=== PATIENT | female | born 2000 | race Caucasian/White ===

== ENCOUNTER 2024-05-17 15:52 | Emergency (ER) | payer OTHER, SELFPAY ==
[2024-05-17 15:53] VITALS: BP 177/75
--- NOTE | 2024-05-17 17:22 | ED.GENMED ---
History of Present Illness
General
Chief Complaint: Vaginal Bleeding
Source: patient and significant other
Exam Limitations: none
Time Seen by Provider: 05/17/24 17:04
Nursing documentation reviewed up to this point in time: agreed with
History of Present Illness
History of Present Illness:
25-year-old female presents emergency room complaining of vaginal bleeding since 05/06/2024. It began to light, then got heavy and has lightened again. She went to urgent care, was given a prescription for UTI, and sent to the emergency
department. She had negative STD and test 10 days ago. She has some nausea and cramping. No vomiting or diarrhea.
Past History
Past History
ED Past Medical History: Other (Factor V Leiden)
ED Past Surgical History: Orthopedic (Left ulna hardware) and Other (Right femoral clot removal)
Social History
Tobacco: Non-smoker
Alcohol: None
Drug: None
Personal: Partner
Living: with family
Review of Systems
Review of Systems
Allergies reviewed?: Yes
All Other Systems: Not applicable
Constitutional: Reports no symptoms
EENT: Reports no symptoms
Respiratory: Reports no symptoms
Cardiac: Reports no symptoms
ABD/GI: Reports no symptoms
: Reports bleeding
Musculoskeletal: Reports no symptoms
Skin: Reports no symptoms
Neurological: Reports no symptoms
Endocrine: Reports no symptoms
Hematologic/Lymphatic: Reports bleeding
Psychiatric: Reports no symptoms
Phy Exam
Physical Exam
Physical Exam:
Physical Exam
General: no apparent distress, not acutely ill
Neck: supple. no meningeal signs. normal posterior pharynx
Heart: s1/s2 regular rate and rhythm, no murmur. equal radial
pulses.
HEENT: Pupils equal round reactive to light, EOMI
Lungs: no acute respiratory distress. clear bilaterally
Abdomen: normal bowel sounds. not tender. no CVAT
Neuro: alert and oriented. no focal neurological deficits
Skin: no rash
Psychiatric: well kept. interactive and cooperative
Extremities: no edema. no calf tenderness. negative homans. good distal pulses
Genitourinary Exam Female
Exam Female: no adnexal tenderness and vaginal bleeding
Vaginal Exam: blood
Vaginal Bleeding: clots
Visual exam of cervix: os closed
Uterus: normal size
Adnexa: Bilateral: Normal
Course
Orders/Labs/Results
Orders:
Orders
05/17/24 17:13
IV Insert/Care/Rem.- Treatment PRN
US Pelvis W Transvag Combined Urgent
Comment:
Reason For Exam: vaginal bleeding2 wks
05/17/24 17:15
Test Result ONCE
05/17/24 17:43
Basic Metabolic Panel Urgent
Complete Blood Count/With Diff Urgent
Abnormal Lab Results
05/17/24
17:43
MCH 32.8 H pg
(27.0-31.0)
MPV 10.6 H fL
(7.4-10.4)
05/17/24 17:43
05/17/24 17:43
Vital Signs
Initial and Last Documented VS:
Initial Vital Signs
Temp Pulse Resp BP Pulse Ox
98.4 F 67 16 177/75 100
05/17/24 15:53 05/17/24 15:53 05/17/24 15:53 05/17/24 15:53 05/17/24 15:53
Last Documented Vital Signs
Temp Pulse Resp BP Pulse Ox
98.4 F 67 18 177/75 100
05/17/24 15:53 05/17/24 15:53 05/17/24 18:15 05/17/24 15:53 05/17/24 15:53
MDM/Problems Addressed
Differential Diagnosis Includes:
Dysmenorrhea, ectopic
MDM/Problems Addressed:
24-year-old female with dysmenorrhea. HCG neg as outpatient.
*Radiology
Radiology exam reviewed: radiology read reviewed (US pelvis no acute findings)
*Pulse Oximetry
Patient hypoxic: no
*Critical Care Note
Total Time (30-74mins, 75-104mins- exclusive of procedures): Not Applicable
Patient Management
Social determinants of health affecting care: Living situation and Strong social support
Escalation/DeEscalation of care consider admission/obs:
admit not indicated
ED Attending Note
-
Portions of this chart may have been created with voice recognition software.� Occasional wrong word or��sound alike� substitutions may have occurred due to the inherent limitations of voice recognition software.
Discharge Plan
Departure
Patient Disposition: Home (Routine Discharge)
Date of Disposition: 05/17/24
Time of Disposition: 18:32
Patient with high blood pressure during this ER visit?: Yes
Condition: Good
Discharge Problem:
Dysmenorrhea
Instructions: Heavy Periods ED, BLOOD PRESSURE
Referrals:
Dee Ramirez MD [Active] - Call in 1-3 days for appt
NONE,* [Family Provider] -
Interventions
Interventions:
*Risk Screen - Suicide Last Done: 05/17/24 15:53
*General Assessment Last Done: 05/17/24 17:10
*Neglect/Abuse Screening Last Done: 05/17/24 15:53
ED- Fall Risk Assessment Last Done: 05/17/24 17:10
ED-Female Genitourinary Assessment Last Done: 05/17/24 17:10
Discharge Date and Time
Print Language: HEBREW
[2024-05-17 17:53] LABS: % Basophils 0.3 % (0-2); % Eosinophils 0.6 % (0-6); % Immature Granulocytes 0.3 % (0-0.5); % Monocytes 4.3 % (1.7-9.3); % Neutrophils 59.5 % (42.2-75.2); Absolute Eosinophils 0.1 10^3/uL (0-0.7); Absolute Lymphocytes 3.3 10^3/uL (1.2-3.4); Absolute Monocytes 0.4 10^3/uL (0.1-0.6); Absolute Neutrophils 5.6 10^3/uL (1.4-6.5); Hematocrit 41.2 % (37.0-47.0); Hemoglobin 14.8 g/dL (12.0-16.0); Mean Corp Hgb Conc. 35.9 g/dL (33.0-37.0); Mean Corpuscular Hgb 32.8 pg (27.0-31.0); Mean Corpuscular Volume 91.4 fL (81.0-99.0); Mean Platelet Volume 10.6 fL (7.4-10.4); Nucleated Red Blood Cells % 0 %; Platelet Count 221 10^3/uL (130-400); Red Blood Cell Count 4.51 10^6/uL (4.20-5.40); Red Cell Dist. Width 12.2 % (11.5-14.5); White Blood Cell Count 9.4 10^3/uL (4.8-10.8)
[2024-05-17 18:22] LABS: Blood Urea Nitrogen 11 mg/dl (7-17); Calcium 9.7 mg/dl (8.4-10.2); Carbon Dioxide 27 mmol/L (22-30); Chloride 101 mmol/L (98-107); Glucose 87 mg/dl (70-99); Potassium 3.8 mmol/L (3.5-5.1); Sodium 140 mmol/L (135-145); eGFR > 60.00
[2024-05-17 18:47] VITALS: BP 112/67
== END 2024-05-17 18:54 | disposition home or self-care (01) ==
LOC: EMR 15:52
PROVIDERS: EMERGENCY PHYSICIAN Emergency Medicine
DX: N94.6 Dysmenorrhea, unspecified (principal); D68.51 Activated protein C resistance
CPT/HCPCS: 99284; 76830; 76856; 80048; 85025